=== PATIENT | female | born 1955 | race Caucasian/White ===

== ENCOUNTER 2017-01-21 07:52 | Outpatient (CLI) | payer OTHER ==
--- NOTE | 2017-01-22 16:25 | Mammography Report ---
DIGITAL SCREENING MAMMOGRAM: 01/21/2017 CLINICAL INDICATION: A 61-year-old nulliparous patient for screening. COMPARISON: 06/2015, 05/2014, 05/2013, 05/2012, 10/2010, 10/2009. TECHNIQUE: Routine CC and MLO projections were obtained of the breasts. FINDINGS: Scattered fibroglandular tissue is present within the breasts. There are no dominant panfilo s, suspicious microcalcifications, or secondary signs of malignancy. In comparison to the previous st udies, there are no significant changes. ASSESSMENT: NO MAMMOGRAPHIC EVIDENCE OF MALIGNANCY. NO SIGNIFICANT INTERVAL CHANGES. RECOMMENDATION: Screening mammography is recommended annually. BI-RADS category 1 - negative. STANDARD QUALIFYING STATEMENTS 1. This examination was reviewed with the aid of Computed-Aided Detection (CAD). 2. A negative or benign imaging report should not delay biopsy if clinically suspicious findings are present. Consider surgical consultation if warranted. More than 5% of cancers are not identified by i maging. 3. Dense breasts may obscure an underlying neoplasm. JOB #: [id number] EXT JOB #:[id number]
== END 2017-01-21 07:53 | disposition home or self-care (01) ==
LOC: DI 07:52
PROVIDERS: ATTEND Internal Medicine
DX: Z12.31 Encounter for screening mammogram for malignant neoplasm of breast (principal)
CPT/HCPCS: 77067

== ENCOUNTER 2017-03-18 20:49 | Observation (INO) | payer OTHER ==
[2017-03-18 21:07] LABS: BASOPHILS % (AUTO) 0.6 %; EOSINOPHILS % (AUTO) 4.4 %; HCT - HEMATOCRIT 40.1 % (37.0-47.0); HGB - HEMOGLOBIN 13.7 g/dL (12.0-16.0); LYMPHOCYTES % (AUTO) 48.9 %; MEAN CORPUSCULAR HEMOGLOBIN 33.7 pg (27.0-31.0); MEAN CORPUSCULAR HGB CONC 34.1 g/dL (32.0-36.0); MEAN CORPUSCULAR VOLUME 98.8 fL (81.0-99.0); MEAN PLATELET VOLUME 7.9 fL (7.9-10.8); MONOCYTES % (AUTO) 7.3 %; NEUTROPHILS % (AUTO) 38.8 %; RED BLOOD COUNT 4.06 10^6/uL (4.20-5.40)
[2017-03-18] MEDS ORDERED: ASPIRIN CHEW 81 MG TABLET PO STA (21:07)
[2017-03-18 21:08] LABS: BAND NEUTROPHILS % (MANUAL) 0 %
[2017-03-18] MEDS ORDERED: ASPIRIN CHEW 81 MG TABLET ONE (21:11)
[2017-03-18 21:20] LABS: ALBUMIN/GLOBULIN RATIO 1.2 (1.0-2.2); BILIRUBIN,TOTAL 0.4 mg/dL (0.2-1.0); CALCIUM 9.8 mg/dL (8.5-10.3); CREATININE 0.9 mg/dL (0.4-1.0); POTASSIUM 3.2 mmol/L (3.5-5.0); TOTAL PROTEIN 8.1 g/dL (6.7-8.2)
[2017-03-18 21:23] LABS: EOSINOPHILS % (MANUAL) 1 %; LYMPHOCYTES % (MANUAL) 51 %; NEUTROPHILS % (MANUAL) 45 %; TOTAL CELLS COUNTED 100
[2017-03-18 21:24] LABS: NP AUTO DIFFERENTIAL? YES; NP MAN DIFFERENTIAL? NO; PLATELET ESTIMATE, MANUAL NORMAL (130-450,000) (NORMAL); PLATELET MORPHOLOGY NORMAL APPEARANCE (NORMAL)
--- NOTE | 2017-03-18 21:30 | ED Physician Documentation ---
History of Present Illness - Stated complaint Stated Complaint: CHEST PX - Chief complaint Chief Complaint: Cardiac - Additonal information Additional information: hx from pt 61 f chest pain waxing and waning since about 5 AM became more constant and severe at 4 PM described as burning and aching to left chest rad to l neck some SOA / limited ability to no abd opain no fever cough no recent travel no hx CAD lung dz, DVT/PE + fhx CAD dad age 60 Review of Systems Constitutional: denies: Fever, Chills Cardiac: reports: Chest pain / pressure Respiratory: reports: Dyspnea. denies: Cough GI: denies: Abdominal Pain Musculoskeletal: denies: Extremity swelling Neurologic: denies: Generalized weakness, Focal weakness, Numbness Immunocompromised: denies: Immunocompromised PD PAST MEDICAL HISTORY - Past Medical History Past Medical History: Yes Psych: Post traumatic stress disorder - Past Surgical History Past Surgical History: Yes General: Appendectomy - Present Medications Home Medications: Ambulatory Orders Medication Instructions Recorded Confirmed No Known Home Medications [No 03/18/17 03/18/17 Known Home Medications] - Allergies Allergies/Adverse Reactions: Allergies Allergy/AdvReac Type Severity Reaction Status Date / Time Sulfa (Sulfonamide Allergy Rash Verified 03/18/17 21:26 Antibiotics) - Social History Does the pt smoke?: No Smoking Status: Never smoker Does the pt drink ETOH?: No Does the pt have substance abuse?: Yes - Immunizations Immunizations are current?: Yes - POLST Patient has POLST: No PD ED PE NORMAL - Vitals Vital signs reviewed: Yes - General General: Alert and oriented X 3 - HEENT HEENT: PERRL - Neck Neck: Supple, no meningeal sign - Cardiac Cardiac: RRR - Respiratory Respiratory: No respiratory distress, Clear bilaterally - Abdomen Abdomen: Soft, Non tender - Extremities Extremities: No deformity, Normal ROM s pain, No edema, No calf tenderness / cord - Neuro Neuro: Alert and oriented X 3 Results - Vitals Vitals: Vital Signs - 24 hr 03/18/17 03/18/17 03/18/17 20:53 21:39 23:41 Temperature 36.6 C Heart Rate 106 H 90 86 Respiratory 18 16 16 Rate Blood Pressure 170/76 H 115/69 105/64 O2 Saturation 100 99 97 Oxygen O2 Source Room air - EKG (time done) 2055 Rate: Rate (enter#) (86) Rhythm: NSR Intervals: Normal [place] QRS: Normal Ischemia: Non specific changes - Labs Labs: Laboratory Tests 03/18/17 03/18/17 03/18/17 20:59 20:59 20:59 WBC 11.0 H RBC 4.06 L Hgb 13.7 Hct 40.1 MCV 98.8 MCH 33.7 H MCHC 34.1 RDW 13.0 Plt Count 232 MPV 7.9 Neut # Not Reportable Lymph # Not Reportable [place] # Not Reportable Eos # Not Reportable Baso # Not Reportable Absolute Nucleated RBC Not Reportable Total Counted 100 Band Neuts % (Manual) 0 Nucleated RBC % Not Reportable Neutrophils # (Manual) 5.0 Lymphocytes # (Manual) 5.6 H Monocytes # (Manual) 0.3 Eosinophils # (Manual) 0.1 Differential Comment MANUAL DIFFERENTIAL Manual Slide Review Indicated Platelet Estimate NORMAL (130-450,000) Platelet Morphology NORMAL APPEARANCE RBC Morph Micro Appear NORMAL APPEARANCE D-Dimer Sodium 137 Potassium 3.2 L Chloride 98 L Carbon Dioxide 28 Anion Gap 11.0 BUN 17 Creatinine 0.9 Estimated GFR (MDRD) 64 L Glucose 94 Calcium 9.8 Total Bilirubin 0.4 AST 23 ALT 16 Alkaline Phosphatase 60 Total Creatine Kinase CK-MB (CK-2) Troponin I < 0.04 Total Protein 8.1 Albumin 4.4 Globulin 3.7 Albumin/Globulin Ratio 1.2 Lipase 38 03/19/17 03/19/17 03/19/17 00:02 00:02 00:02 WBC RBC Hgb Hct MCV MCH MCHC RDW Plt Count MPV Neut # Lymph # [place] # Eos # Baso # Absolute Nucleated RBC Total Counted Band Neuts % (Manual) Nucleated RBC % Neutrophils # (Manual) Lymphocytes # (Manual) Monocytes # (Manual) Eosinophils # (Manual) Differential Comment Manual Slide Review Platelet Estimate Platelet Morphology RBC Morph Micro Appear D-Dimer 224.9 Sodium Potassium Chloride Carbon Dioxide Anion Gap BUN Creatinine Estimated GFR (MDRD) Glucose Calcium Total Bilirubin AST ALT Alkaline Phosphatase Total Creatine Kinase 50 CK-MB (CK-2) 1.6 Troponin I < 0.04 Total Protein Albumin Globulin Albumin/Globulin Ratio Lipase - Rads (name of study) CXR Radiology: See rad report (scoliosis no acute) PD MEDICAL DECISION MAKING - ED course ED course: no CP in ED HEART score of 4 merits admit for serial CE echo hopefully EST given asa spoke with hospitalist who reviewed EKG and would like a 2nd trop in ER prior to admit to [facility] Departure - Departure Disposition: ED Place in Observation Clinical Impression: Chest pain Qualifiers: Chest pain type: unspecified Qualified Code(s): R07.9 - Chest pain, unspecified Condition: Good
--- NOTE | 2017-03-18 21:40 | XRAY Preliminary Report ---
Exam: XR CHEST 1 VIEW IMPRESSION: Mild S-shaped scoliosis, otherwise unremarkable single view chest. [facility] SITE ID: [id number]
--- NOTE | 2017-03-18 21:42 | XRAY Report ---
EXAM: CHEST RADIOGRAPHY EXAM DATE: 03/18/2017 09:33 PM. CLINICAL HISTORY: Chest pain. COMPARISON: None. TECHNIQUE: 1 view. FINDINGS: Lungs/Pleura: No focal opacities evident. No pleural effusion. No pneumothorax. Mediastinum: Within exam limitations, the cardiomediastinal contour is normal. Other: Mild S-shaped scoliosis noted. IMPRESSION: Mild S-shaped scoliosis, otherwise unremarkable single view chest. [facility] Referring Provider Line: [phone] SITE ID: [id number]
[2017-03-19] MEDS ORDERED: LORazepam 0.5 MG TABLET ONE (00:08)
[2017-03-19] MEDS ORDERED: LORazepam 0.5 MG TABLET PO STA (00:17)
[2017-03-19 00:26] LABS: CREATINE KINASE MB 1.6 ng/mL (0.6-6.3)
[2017-03-19] MEDS ORDERED: POTASSIUM CHLORIDE 20 MEQ TABLET PO STA (00:26)
[2017-03-19 00:28] LABS: TROPONIN I < 0.04 ng/mL (<0.49)
[2017-03-19] MEDS ORDERED: SODIUM CHLORIDE FLUSH 0.9% 10 ML SYRINGE IVP PRN (00:33)
[2017-03-19] MEDS ORDERED: ONDANSETRON 4 MG/2 ML VIAL IVP PRN (00:33)
[2017-03-19] MEDS ORDERED: TEMAZEPAM 15 MG CAPSULE PO PRN (00:33)
[2017-03-19] MEDS ORDERED: oxyCODONE 5 MG TABLET PO PRN (00:33)
[2017-03-19] MEDS ORDERED: hydrOXYzine PAMOATE 25 MG CAPSULE PO PRN (00:39)
--- NOTE | 2017-03-19 02:11 | HISTORY & PHYSICAL EXAMINATION ---
DATE OF ADMISSION: 03/19/2017 CHIEF COMPLAINT: Chest pain. HISTORY OF PRESENT ILLNESS: The patient a 61-year-old white female with no significant past medical history, taking no outpatient medications. The patient reported that multiple friends and family members during the past month or so and she had been under increased stress. She does not have cardiac history, is not diabetic and never experienced chest pain or decreased exercise tolerance in the past. She felt overwhelmed during the past week, however, and had some dizzy spells. She woke up around 5:30 a.m. on 03/18/2017 at which time she had left-sided chest discomfort. Initially it was not painful. However, during the day, the intensity of the discomfort increased and around 3 p.m. and it was definitely a pain. At that time, the patient noticed that the pain radiated to the left arm and also radiated up on her neck. She was worried and came to the ER for evaluation. Other than the chest discomfort she had no symptoms, denied nausea, vomiting, abdominal complaints, denied shortness of breath, or palpitations. At the ER, the patient was tearful and was given Ativan 2 times. The ER workup showed negative troponin; however, EKG appeared abnormal with multiple nonspecific changes including minimal ST depression in several leads. There was no previous EKG to compare. PAST MEDICAL HISTORY: Nonsignificant. OUTPATIENT MEDICATIONS: None taken. Diagnostic workup reviewed per ER record included a potassium of 3.2, abnormal EKG as mentioned above, unremarkable chest x-ray except for mild scoliosis. CODE STATUS: FULL CODE. REVIEW OF SYSTEMS: Please see pertinent positives listed above at history of present illness. There was no additional complaint on the 12-point review. FAMILY HISTORY: Positive for lung cancer in the father and heart disease leading to pacemaker implant in the father who at age 85. SOCIAL HISTORY: The patient smoked cigarettes up to age 27. She drinks alcohol occasionally. She uses marijuana regularly. PHYSICAL EXAMINATION: VITAL SIGNS: Temperature 36.6 Celsius, heart rate between 80 and 100, blood pressure 120/70 initially 170/70, respiratory rate 16, oxygen saturation 100% on room air. GENERAL: The patient is a well-developed, well-nourished female who was tearful and anxious, otherwise not in distress. PSYCH: Cooperative, but tearful. NEUROLOGICAL: Neurologically alert, oriented, nonfocal. CARDIOVASCULAR: S1, S2. No pathologic murmur. RESPIRATORY: Clear to auscultation without wheezes or crackles. LYMPH: No lymphedema. ABDOMEN: Soft, benign, nontender, normal bowel tones. SKIN: No rash. No jaundice. MUSCULOSKELETAL: Atraumatic. ASSESSMENT AND PLAN: The patient is a 61-year-old female with no significant past medical history who presented with 1 day history of intermittent chest discomfort. She did have negative troponin. Prior to bringing her up to medical floor I actually ordered a second troponin and D-dimer which also turned out to be negative. It was somewhat worrisome that her EKG showed some nonspecific changes. Additional issues on admission was hypokalemia and for that potassium replacement was already given. PLAN AND ORDERS: The patient is getting admitted under observation, will be monitored on telemetry and we will check a third troponin in the morning. Subsequently, I ordered stress test given the fact that the patient never had cardiac evaluation. Notably, the patient did have an abnormal EKG and no prior one was available to compare. It is possible that she does have coronary artery disease and she could develop anginal symptoms secondary to increased stress even without elevated troponin. Further plan will depend on the clinical course. DVT prophylaxis with foot pumps. If the patient remains hospitalized for longer than 24 hours, then pharmacologic DVT prophylaxis could be considered. Time spent to the care of this patient was 45 minutes. JOB #: [id number] EXT JOB #:[id number] SARAH
[2017-03-19] MEDS: SODIUM CHLORIDE FLUSH 0.9% 10 ML SYRINGE IVP SCH ×2 (05:13→14:17)
[2017-03-19 08:49] LABS: CHOL/HDL RATIO 3.1 (<4.4); CHOLESTEROL 200 mg/dL; HDL CHOLESTEROL 64 mg/dL; TRIGLYCERIDES 46 mg/dL; VLDL CHOLESTEROL 9 mg/dL
[2017-03-19] MEDS ORDERED: POLYETHYLENE GLYCOL 3350 17 GM PACKET PO SCH (09:00)
[2017-03-19] MEDS ORDERED: REGADENOSON 0.4 MG/5 ML SYRINGE IVP ONE (11:24)
--- NOTE | 2017-03-19 13:31 | CARDIAC PROCEDURE NOTE ---
DATE OF SERVICE: 03/19/2017 00:00:00 DESCRIPTION OF PROCEDURE: After signing informed consent, the patient underwent a treadmill stress te st with nuclear imaging. Resting heart rate 73. Peak heart rate 144 (90% predicted maximum heart rate for age). Resting blood pressure 118/62. Peak blood pressure 140/70. Resting EKG: Normal sinus rhythm and within normal limits. Peak EKG: Normal sinus rhythm, and inferio r and lateral ST segment depressions that are horizontal of 1 mm. The patient experienced no chest pain, neck pain or left arm pain during her exercise and had trivial shortness of breath. IMPRESSION: Abnormal EKG changes during treadmill stress test. Nuclear images reported separately. JOB #: [id number] EXT JOB #:[id number]
--- NOTE | 2017-03-19 14:48 | Nuclear Medicine Prelim Report ---
Exam: NM MYOCARDIAL PERFUSION STR/RST IMPRESSION: 1. No scintigraphic findings to indicate myocardial ischemia. Negative for infarct. 2. Normal left ventricular ejection fraction of 64%. 3. Normal segmental and global wall motion. 4. Normal left ventricular cavity size, no change with stress. [facility] SITE ID: [id number]
--- NOTE | 2017-03-19 14:51 | Nuclear Medicine Report ---
EXAM: SINGLE-ISOTOPE EXERCISE STRESS TEST. SINGLE-ISOTOPE AND ONE-DAY REST/STRESS MYOCARDIAL PERFUSION SCAN S WITH TOMOGRAPHIC IMAGING, QUANTITATIVE ANALYSIS, WALL MOTION ANALYSIS AND CALCULATION OF EJECTION F RACTION. EXAM DATE: 03/19/2017 02:25 PM. CLINICAL HISTORY: New onset of chest pain. COMPARISON: None. TECHNIQUE: A rest myocardial perfusion scan was done with tomography after the intravenous administration of 10. 7 mCi Tc-99m sestamibi. After an appropriate delay, a treadmill exercise stress was performed according to department saraho l. The patient exercised for 5 minutes and 0 seconds. The maximum heart rate was 175 bpm, which was 1 09% of the maximum predicted heart rate of 161 bpm. At approximately peak heart rate, 43.5 mCi of Tc- 99m sestamibi was injected for stress myocardial perfusion scan. Motion correction was applied when a ppropriate. Gated tomographic images were obtained for wall motion analysis and computation of left ventricular e jection fraction. FINDINGS: No convincing fixed or reversible perfusion defects are evident. Wall motion analysis demonstrates no focal wall motion abnormality The left ventricular end-diastolic volume is 69 cc. The left ventricular end-systolic volume is 25 cc . The left ventricular ejection fraction is calculated to be 64%. IMPRESSION: 1. No scintigraphic findings to indicate myocardial ischemia. Negative for infarct. 2. Normal left ventricular ejection fraction of 64%. 3. Normal segmental and global wall motion. 4. Normal left ventricular cavity size, no change with stress. [facility] Referring Provider Line: [phone] SITE ID: [id number]
[2017-03-19] MEDS ORDERED: DICLOFENAC SODIUM DR 75 MG TABLET PO PRN (15:53)
--- NOTE | 2017-03-19 15:53 | Discharge Plan ---
Discharge Plan Disposition: Home, Self Care Condition: Good Prescriptions: buPROPion [Wellbutrin Xl] 150 mg PO DAILY #30 tablet Diet: Regular Activity Restrictions: No Restrictions Shower Restrictions: No Driving Restrictions: No Weight Bearing: Full Weight Additional Instructions or Follow Up instructions: Please follow up with PCP for this hospital stay. Please try to keep therapy appointments if able. Take new prescribed Wellbutrin (bupropion). Start with 150mg by mouth daily, ok to increase to 300mg daily after one week. See psychiatrist for follow up. Do things that are enjoyable. No Smoking: If you smoke, Please STOP! Call for help. Follow-up with: KULDIP MARTE MD [Primary Care Provider] -
[2017-03-19] MEDS ORDERED: buPROPion XL 150 MG TABLET PO SCH (16:00)
[2017-03-19 16:09] VITALS: BP 124/78
--- NOTE | 2017-03-19 20:02 | DISCHARGE SUMMARY ---
Discharge Summary Admit Date: 03/19/17 Discharge Date: 03/19/17 Discharging Provider: EMMANUEL Tan Condition at Discharge: Good Discharge Disposition: 01 Home, Self Care - DIAGNOSES Admission Diagnoses: Chest pain Anxiety disorder Hypokalemia Discharge Diagnoses with Status of Each Condition: Chest pain Anxiety disorder Hypokalemia - ALLERGIES Allergies/Adverse Reactions: Allergies Allergy/AdvReac Type Severity Reaction Status Date / Time Sulfa (Sulfonamide Allergy Rash Verified 03/18/17 21:26 Antibiotics) - MEDICATIONS Home Medications: Ambulatory Orders Medication Instructions Recorded Confirmed Diclofenac Sodium Dr [Voltaren] 75 mg PO PRN PRN 03/19/17 03/19/17 Multivitamin [Theragran] 1 tab PO DAILY 03/19/17 03/19/17 buPROPion [Wellbutrin Xl] 150 mg PO DAILY #30 tablet 03/19/17 - LABS Result Diagrams: 03/18/17 20:59 03/18/17 20:59
[2017-03-20] MEDS ORDERED: MULTIVITAMIN TABLET PO SCH (09:00)
== END 2017-03-19 16:10 | disposition home or self-care (01) ==
LOC: ED 20:49 → OBS 03-19 00:33
PROVIDERS: ADMIT Internal Medicine; ATTEND Nurse Practitioner
DX: R07.9 Chest pain, unspecified (principal); F41.9 Anxiety disorder, unspecified; E87.6 Hypokalemia; Z87.891 Personal history of nicotine dependence
CPT/HCPCS: 36415; 71010; 78452; 80053; 80061; 82550; 82553; 83690; 84484; 85025; 85379; 93005; 93017; 99284; A9270; A9500; G0378

== ENCOUNTER 2018-01-28 11:25 | Outpatient (CLI) | payer OTHER | END 2018-01-28 11:26 | disposition critical access hospital (66) | LOC: EMS 11:25 | PROVIDERS: ATTEND Surgery | DX: R51 Headache (principal); R47.81 Slurred speech; R29.810 Facial weakness | CPT/HCPCS: A0425; A0429 ==

== ENCOUNTER 2018-01-28 11:35 | Emergency (ER) | payer OTHER ==
--- NOTE | 2018-01-28 11:47 | ED Physician Documentation ---
History of Present Illness - Stated complaint Stated Complaint: SPEECH DEFICIT - Chief complaint Chief Complaint: Neuro - Additonal information Additional information: hx from pt and EMS 62 female unknown last normal missed an appt yesterday police out for welfare check today and found pt with R sided weakness and aphasia pt cannt say when last normal was pt denies any fall she denies [employer] CP AP no fever cough NVD no prior CVA no blood thinners [facility] pt Review of Systems Constitutional: denies: Fever Throat: denies: Sore throat Cardiac: denies: Chest pain / pressure Respiratory: denies: Dyspnea GI: denies: Abdominal Pain, Nausea, Vomiting : denies: Dysuria Neurologic: reports: Focal weakness, Difficulty speaking. denies: Numbness, Headache, Head injury Endocrine: denies: Easy bruising / bleeding Immunocompromised: denies: Immunocompromised PD PAST MEDICAL HISTORY - Past Medical History Cardiovascular: Hypertension Respiratory: None Endocrine/Autoimmune: None : Frequency HEENT: None Psych: Post traumatic stress disorder Musculoskeletal: Rheumatoid arthritis Derm: Eczema - Past Surgical History Past Surgical History: Yes General: Appendectomy - Present Medications Home Medications: Ambulatory Orders Medication Instructions Recorded Confirmed Multivitamin [Theragran] 1 tab PO DAILY 03/19/17 03/19/17 buPROPion [Wellbutrin Xl] 150 mg PO DAILY #30 tablet 03/19/17 Cetirizine [ZyrTEC] 10 mg pe 01/28/18 - Allergies Allergies/Adverse Reactions: Allergies Allergy/AdvReac Type Severity Reaction Status Date / Time Sulfa (Sulfonamide Allergy Rash Verified 01/28/18 11:43 Antibiotics) - Social History Does the pt smoke?: No Smoking Status: Former smoker Does the pt drink ETOH?: No Does the pt have substance abuse?: Yes - Immunizations Immunizations are current?: Yes - POLST Patient has POLST: No PD ED PE NORMAL - Vitals Vital signs reviewed: Yes - General General: Alert and oriented X 3 - HEENT HEENT: Atraumatic, PERRL, EOMI - Neck Neck: Supple, no meningeal sign - Cardiac Cardiac: RRR - Respiratory Respiratory: No respiratory distress, Clear bilaterally - Abdomen Abdomen: Soft, Non tender - Derm Derm: Normal color - Neuro Neuro: Alert and oriented X 3, No motor deficit (R sided weakness), No sensory deficit, Normal speech (expressive and receptive apahasia). No: skewer up 2-12 intact (R facial droop) Results - Vitals Vitals: Vital Signs - 24 hr 01/28/18 01/28/18 01/28/18 11:38 13:59 15:50 Temperature 37.1 C 37.1 C Heart Rate 84 76 75 Respiratory 20 17 30 H Rate Blood Pressure 135/74 H 118/79 118/68 O2 Saturation 100 100 94 01/28/18 01/28/18 16:45 18:27 Temperature 37.1 C Heart Rate 78 67 Respiratory 22 16 Rate Blood Pressure 127/63 121/78 O2 Saturation 100 100 Oxygen O2 Source Room air - EKG (time done) 1158 Rate: Rate (enter#) (55) Rhythm: NSR [place]: Normal Intervals: Normal [place] QRS: Normal Ischemia: Normal ST segments - Labs Labs: Laboratory Tests 01/28/18 01/28/18 01/28/18 11:53 11:53 11:53 WBC 10.4 RBC 4.27 Hgb 14.5 Hct 42.2 MCV 99.0 MCH 33.9 H MCHC 34.3 RDW 12.8 Plt Count 229 MPV 8.3 Neut # (Auto) 6.9 H Lymph # (Auto) 2.6 Davison # (Auto) 0.7 Eos # (Auto) 0.0 Baso # (Auto) 0.0 Absolute Nucleated RBC 0.00 Nucleated RBC % 0.0 PT 12.2 INR 1.1 Sodium 139 Potassium 3.2 L Chloride 104 Carbon Dioxide 23 Anion Gap 12.0 BUN 15 Creatinine 0.8 Estimated GFR (MDRD) 73 L Glucose 102 H Calcium 9.6 Total Bilirubin 1.4 H AST 24 ALT 17 Alkaline Phosphatase 55 Troponin I Total Protein 8.3 H Albumin 4.7 Globulin 3.6 Albumin/Globulin Ratio 1.3 Lipase 34 Urine Color Urine Clarity Urine pH Ur Specific [place] Urine Protein Urine Glucose (UA) Urine Ketones Urine Occult Blood Urine Nitrite Urine Bilirubin Urine Urobilinogen Ur Leukocyte Esterase Urine RBC Urine WBC Ur Squamous Epith Cells Urine Bacteria Urine Mucus Ur Microscopic Review Urine Culture Comments 01/28/18 01/28/18 11:53 12:15 WBC RBC Hgb Hct MCV MCH MCHC RDW Plt Count MPV Neut # (Auto) Lymph # (Auto) Davison # (Auto) Eos # (Auto) Baso # (Auto) Absolute Nucleated RBC Nucleated RBC % PT INR Sodium Potassium Chloride Carbon Dioxide Anion Gap BUN Creatinine Estimated GFR (MDRD) Glucose Calcium Total Bilirubin AST ALT Alkaline Phosphatase Troponin I < 0.04 Total Protein Albumin Globulin Albumin/Globulin Ratio Lipase Urine Color YELLOW Urine Clarity CLEAR Urine pH 6.0 Ur Specific [place] >=1.030 H Urine Protein NEGATIVE Urine Glucose (UA) NEGATIVE Urine Ketones >=80 H Urine Occult Blood MODERATE H Urine Nitrite NEGATIVE Urine Bilirubin NEGATIVE Urine Urobilinogen 1 (NORMAL) Ur Leukocyte Esterase NEGATIVE Urine RBC 0-5 Urine WBC 0-3 Ur Squamous Epith Cells MOD Squamous H Urine Bacteria Rare Urine Mucus Moderate Strands Ur Microscopic Review INDICATED Urine Culture Comments NOT INDICATED - Rads (name of study) CTH Radiology: See rad report (see rad report - subacute L MCA territory infarct with 2 mm shift) CTA head Radiology: See rad report (L MCA occulusion likely embolic thrombus) PD MEDICAL DECISION MAKING - ED course ED course: severe stroke sx but last known normal unknown and so not a TPA candidate per CT and CTA pt has a subacute L MCA embolic occlusion with stroke and resultant edema and small shift called stroke center [facility] and d/w Dr Edgar - pt is not a candidate for TPA or clot retrieval etc - but given age edema and shift might be a candidate for de compressive crani - he accepts pt in transfer - he rec asa [place] pt appears dehydrated and do not think safe to take PO - and so started IVF bolus and maintenance D5 1/2 NS finally received bed confirmation from [facility] at 1800 pt has been slowly worsening this afternoon - worsening aphasia and now urinary incont per EMS minimum another hr before ground transport will be available, maybe longer will transfer by air - Sepsis Event Vital Signs: Vital Signs - 24 hr 01/28/18 01/28/18 01/28/18 11:38 13:59 15:50 Temperature 37.1 C 37.1 C Heart Rate 84 76 75 Respiratory 20 17 30 H Rate Blood Pressure 135/74 H 118/79 118/68 O2 Saturation 100 100 94 01/28/18 01/28/18 16:45 18:27 Temperature 37.1 C Heart Rate 78 67 Respiratory 22 16 Rate Blood Pressure 127/63 121/78 O2 Saturation 100 100 Oxygen O2 Source Room air Departure - Departure Disposition: 02 Transfer Acute Care Hosp Clinical Impression: Cerebrovascular accident (CVA) Qualifiers: CVA mechanism: embolism Precerebral and cerebral artery: middle cerebral artery Laterality of affected vessel: left Qualified Code(s): I63.412 - Cerebral infarction due to embolism of left middle cerebral artery Condition: Poor NIHSS - Time Time: 11:40 - Level of Consciousness Level of consciousness: (0) Alert, Keenly responsive LOC Questions: (0) Answers both Q's correct LOC Commands: (1) Performs one correctly (touches her ear when asked to touch her nose) - Gaze Best Gaze: (0) Normal - Visual Visual: (0) No loss - Facial Palsy Facial Palsy: (2) Partial paralysis - Motor Arms (both separate) Motor Arm (right): (3) No effort against gravity Motor Arm (left): (0) No drift - Motor Legs (both separate) Motor Leg (right): (3) No effort against gravity Motor Leg (left): (0) No drift - Limb Ataxia Limb Ataxia: (2) Present in 2 limbs - Sensory Sensory: (0) Normal - Best Language Best Language: (2) Severe aphasia - Dysarthria Dysarthria: (0) Normal - Extinction and Inattention (formally neg Extinction and inattention: (0) No abnormality - Total Score/Results Total Score/Result: 13
[2018-01-28 11:57] LABS: BASOPHILS % (AUTO) 0.5 %; EOSINOPHILS % (AUTO) 0.5 %; HGB - HEMOGLOBIN 14.5 g/dL (12.0-16.0); LYMPHOCYTES # (AUTO) 2.6 10^3/uL (1.5-3.5); LYMPHOCYTES % (AUTO) 25.5 %; MEAN CORPUSCULAR HEMOGLOBIN 33.9 pg (27.0-31.0); MEAN CORPUSCULAR HGB CONC 34.3 g/dL (32.0-36.0); MEAN PLATELET VOLUME 8.3 fL (7.9-10.8); MONOCYTES # (AUTO) 0.7 10^3/uL (0.0-1.0); MONOCYTES % (AUTO) 6.6 %; NEUTROPHILS # (AUTO) 6.9 10^3/uL (1.5-6.6); NEUTROPHILS % (AUTO) 66.9 %; PLT - PLATELET COUNT 229 10^3/uL (130-450); RED BLOOD COUNT 4.27 10^6/uL (4.20-5.40); RED CELL DISTRIBUTION WIDTH 12.8 % (12.0-15.0); WHITE BLOOD COUNT 10.4 x10^3/uL (4.8-10.8)
[2018-01-28 12:02] LABS: INR 1.1 (0.8-1.2); PT - PROTHROMBIN TIME 12.2 secs (9.9-12.6)
[2018-01-28 12:09] LABS: ALBUMIN 4.7 g/dL (3.2-5.5); ALBUMIN/GLOBULIN RATIO 1.3 (1.0-2.2); BILIRUBIN,TOTAL 1.4 mg/dL (0.2-1.0); CALCIUM 9.6 mg/dL (8.5-10.3); CREATININE 0.8 mg/dL (0.4-1.0); TOTAL PROTEIN 8.3 g/dL (6.7-8.2)
[2018-01-28 12:35] LABS: GLUCOSE, URINE (UA) NEGATIVE (NEGATIVE); KETONES,URINE (UA) >=80 mg/dL (NEGATIVE); LEUKOCYTE ESTERASE, URINE NEGATIVE (NEGATIVE); NITRITE,URINE NEGATIVE (NEGATIVE); OCCULT BLOOD,URINE MODERATE (NEGATIVE); PROTEIN,URINE NEGATIVE (NEGATIVE); UROBILINOGEN,URINE 1 (NORMAL) E.U./dL (NORMAL)
[2018-01-28] MEDS ORDERED: IOPAMIDOL-300 100 ML VIAL ONE (12:48)
[2018-01-28 12:57] LABS: BILIRUBIN,URINE NEGATIVE (NEGATIVE); CLARITY,URINE CLEAR (CLEAR); ICTOTEST,URINE NEGATIVE
[2018-01-28 13:15] LABS: BACTERIA,URINE Rare /HPF (None Seen); MUCUS,URINE Moderate Strands; RBC,URINE 0-5 /HPF (0-5); SQUAMOUS EPITHELIAL CELL,UR MOD Squamous (<= Few)
[2018-01-28] MEDS ORDERED: IOPAMIDOL-300 100 ML VIAL IVP ONE (13:42)
--- NOTE | 2018-01-28 13:42 | CT Report ---
Reason: R side weakness tevin/rec aphasia out of TPA window Procedure Date: 01/28/2018 Accession Number: [id number] / [id number] Procedure: CT - Head W/O CPT Code: FULL RESULT: EXAM: CT HEAD EXAM DATE: 01/28/2018 01:18 PM. CLINICAL HISTORY: R side weakness tevin/rec aphasia out of TPA window. COMPARISON: None. TECHNIQUE: Multiaxial CT images were obtained from the foramen magnum to the vertex. Reformats: Coronal. IV contrast: None. In accordance with CT protocol optimization, one or more of the following dose reduction techniques were utilized for this exam: automated exposure control, adjustment of mA and/or KV based on patient size, or use of iterative reconstructive technique. FINDINGS: Parenchyma: There is an approximately 5.4 x 4.9 x 5.4 cm area of marked cortical and subcortical hypodensity suggesting subacute infarction involving the left posterior inferior frontal lobe, insula, caudate nucleus, striate nuclei, internal capsule, and anterior superior left temporal lobe. There is minimal mass-effect with 2 mm left to right subfalcine shift and mild effacement of adjacent sulci. No other low density lesions. No high density lesions. German-white differentiation otherwise is intact. Extraaxial Spaces: Normal for age. No subdural or epidural collections identified. Ventricles: Mild effacement of the left lateral ventricle frontal horn and body. No hydrocephalus. Sinuses and Orbits: Imaged paranasal sinuses, orbits, and mastoids show no significant abnormality. Bones: No evidence of fracture or calvarial defect. Plates and screws at the anterior medial and anterolateral maxillary bones bilaterally. Other: None. IMPRESSION: 1. 5 cm likely subacute infarction in the left MCA distribution involving the left posterior inferior frontal lobe, insula, basal ganglia, internal capsule, and anterior superior temporal lobe. 2. Minimal mass-effect on adjacent sulci and left lateral ventricle with minimal 2 mm left to right midline shift. 3. No intracranial hemorrhage. RADIA
--- NOTE | 2018-01-28 14:02 | CT Report ---
Reason: R sided weakness rec/exp apaia Procedure Date: 01/28/2018 Accession Number: [id number] / [id number] Procedure: CT - Head Angio CPT Code: FULL RESULT: CT ANGIOGRAM HEAD AND POSTCONTRAST HEAD CT Indication: 62-year-old female with right-sided weakness and receptive/expressive aphasia. Has evidence of recent infarction in left MCA territory on unenhanced head CT. TECHNIQUE: CT angiogram head 80 cc of Isovue-300 contrast were injected at a rapid rate through a large bore, left antecubital intravenous catheter. The head was scanned helically during arterial phase. Data was reconstructed into 0.5 mm axial images. In addition, MIP reconstructions have been generated in multiple projections to allow better assessment of the intracranial arteries. In accordance with CT protocol optimization, one or more of the following dose reduction techniques were utilized for this exam: automated exposure control, adjustment of mA and/or KV based on patient size, or use of iterative reconstructive technique. COMPARISON: Unenhanced head CT 01/28/2018 FINDINGS: CT angiogram head Anterior circulation: There is calcified atherosclerotic plaque in the cavernous segment of the left internal carotid artery without significant associated stenosis. The intracranial internal carotid arteries are otherwise unremarkable. No aneurysm is identified. The A1 segment of the left anterior cerebral artery is mildly hypoplastic with larger right A1 segment. An anterior communicating artery is demonstrated. There appears to be good filling of A2 and distal ISABELLA branches bilaterally. No obvious ISABELLA branch occlusion is demonstrated. There is occlusion of the left MCA in the proximal M1 segment. The occlusion is almost certainly from an intraluminal thrombus. There is filling of some M3 and M4 branches, probably retrograde and through leptomeningeal collaterals. The right middle cerebral artery is unremarkable. No aneurysm is demonstrated and there is no evidence of occlusion or hemodynamically significant stenosis affecting the main branches of the right MCA. Posterior circulation: The vertebral arteries and left PICA are widely patent. No right PICA is identified. The right PICA territory is probably supplied by the contralateral PICA or ipsilateral AICA (normal anatomical variant). There may be a focal fenestration of the proximal basilar artery. This represents a known anatomical variant. The basilar artery is otherwise unremarkable. There is good filling of the superior cerebellar arteries and posterior cerebral arteries without apparent stenosis. Patent posterior communicating arteries are demonstrated bilaterally. No aneurysms are identified arising from the basilar artery trunk or apex. Postcontrast head CT No enhancing space-occupying mass lesion is demonstrated. There appears to be normal intravascular contrast enhancement in the dural venous sinuses and deep venous structures. Changes of recent left MCA infarction are again demonstrated, as seen on recent unenhanced head CT. IMPRESSION: CT angiogram head 1. Abrupt occlusion, left MCA and proximal M1 segment. The occlusion is almost certainly from intraluminal thrombus. There is filling of some M3 and M4 branches, probably retrograde and through leptomeningeal collaterals. 2. Otherwise unremarkable intracranial CT angiogram. Postcontrast head CT No enhancing space-occupying mass lesion is demonstrated. Critical result: The findings of the proximal left MCA occlusion were immediately called to Dr. Rutledge , following preliminary assessment on September 24 at roughly 1355 hrs.
[2018-01-28] MEDS ORDERED: SODIUM CHLORIDE 0.9% 1,000 ML IV ONE (14:13)
[2018-01-28] MEDS ORDERED: DEXTROSE 5%-0.45% NACL 1,000 ML IV ONE (14:14)
[2018-01-28] MEDS ORDERED: ASPIRIN 300 MG SUPP PR STA (14:19)
--- NOTE | 2018-01-28 14:26 | CT Report ---
Reason: R weakness rec/exp aphasia out of TPA window Procedure Date: 01/28/2018 Accession Number: [id number] / [id number] Procedure: CT - Neck Angio CPT Code: FULL RESULT: CT ANGIOGRAM NECK EXAM DATE: 01/28/2018. INDICATION: 62-year-old female. Right-sided weakness with receptive/expressive aphasia. Out of TPA window. TECHNIQUE: 100 cc of Isovue-300 contrast were injected at a rapid rate through a large bore, left antecubital intravenous catheter. The neck was scanned helically during arterial phase. Data was reconstructed into 0.5 mm axial images. In addition, MIP reconstructions have been generated in multiple projections to allow better assessment of the extracranial carotid and vertebral arteries. Significant arterial stenoses will be assessed using NASCET type measurements. In accordance with CT protocol optimization, one or more of the following dose reduction techniques were utilized for this exam: automated exposure control, adjustment of mA and/or KV based on patient size, or use of iterative reconstructive technique. COMPARISON: None. FINDINGS: Of note, the patient also had a CTA examination of the head performed at same visit but this has been dictated separately. The left common carotid artery arises from the left lateral wall of the proximal innominate artery. This represents a known anatomical variant. Branching of the aortic arch is otherwise normal. Right carotid artery: There is minimal calcified plaque along the posterior wall at the carotid bifurcation. No associated stenosis. Left carotid artery: There is partially calcified plaque at the carotid bifurcation, extending along the posterior wall of the proximal bulb. There is associated narrowing in the proximal bulb. At the level of maximal narrowing the lumen is reduced to about 2 mm AP. More distally the ICA measures about 3.5 mm diameter. This represents a 40% NASCET type stenosis. Right vertebral artery: Widely patent at origin. There is mild narrowing in the V2 segment at the C5-C6 and C4-C5 disk levels, due to mass effect by large right-sided uncovertebral osteophytes. The V2 segment is otherwise unremarkable. The V3 segment appears widely patent. Left vertebral artery: There appears to be mild narrowing at the origin. The V1 segment is otherwise unremarkable. The V2 and V3 segments are widely patent throughout. IMPRESSION: 1. Atherosclerotic disease at the left carotid bifurcation gives rise to about 40% NASCET type stenosis in the proximal left carotid bulb. 2. There is minor atherosclerotic disease at the right carotid bifurcation without associated carotid artery stenosis. 3. No significant pathology is identified in the extracranial vertebral arteries. In particular, there is no evidence of dissection or hemodynamically significant stenosis.
[2018-01-28 18:27] VITALS: BP 121/78
== END 2018-01-28 19:22 | disposition short-term general hospital (02) ==
LOC: EDUNIT# → ED 11:35
DX: I63.412 Cerebral infarction due to embolism of left middle cerebral artery (principal); I10 Essential (primary) hypertension; Z87.891 Personal history of nicotine dependence
CPT/HCPCS: 36415; 70450; 70496; 70498; 80053; 81001; 83690; 84484; 85025; 85610; 93005; 96360; 99284; 99285; A9270; Q9967; 81003; 87086

== ENCOUNTER 2018-06-27 11:51 | Emergency (ER) | payer OTHER ==
[2018-06-27 12:09] VITALS: BP 113/71
--- NOTE | 2018-06-27 13:03 | ED Physician Documentation ---
PD HPI UPPER EXT INJURY - Stated complaint Stated Complaint: R HAND INJ - Chief complaint Chief Complaint: Ext Problem - History obtained from History obtained from: Patient - History of Present Illness Location: Right, Hand Type of injury: Fall (She fell 4 weeks ago. She has a history of stroke with right-sided deficits and speech deficits, she still feels pain and has persi stent bruising over the right hand.) Review of Systems Constitutional: reports: Reviewed and negative Throat: reports: Reviewed and negative Cardiac: reports: Reviewed and negative Respiratory: reports: Reviewed and negative PD PAST MEDICAL HISTORY - Past Medical History Cardiovascular: Hypertension Respiratory: None Endocrine/Autoimmune: None : Frequency HEENT: None Psych: Post traumatic stress disorder Musculoskeletal: Rheumatoid arthritis Derm: Eczema - Past Surgical History Past Surgical History: Yes General: Appendectomy - Present Medications Home Medications: Ambulatory Orders Medication Instructions Recorded Confirmed RX: Multivitamin [Theragran] 1 tab PO DAILY 03/19/17 03/19/17 RX: buPROPion [Wellbutrin Xl] 150 mg PO DAILY #30 tablet 03/19/17 RX: Cetirizine [ZyrTEC] 10 mg pe 01/28/18 - Allergies Allergies/Adverse Reactions: Allergies Allergy/AdvReac Type Severity Reaction Status Date / Time Sulfa (Sulfonamide Allergy Rash Verified 01/28/18 11:43 Antibiotics) - Social History Does the pt smoke?: No Smoking Status: Former smoker Does the pt drink ETOH?: No Does the pt have substance abuse?: Yes - Immunizations Immunizations are current?: Yes - POLST Patient has POLST: No PD ED PE NORMAL - Vitals Vital signs reviewed: Yes - General General: Alert and oriented X 3 (Slow stuttering speech with mild word finding difficulties) - Extremities Extremities: Other (She is tender over the first metacarpal and second metacarpal with some persistent bruising there. Hands are held in slight flexion which could be from the stroke and she has minimal use of the right hand.) - Neuro Neuro: Alert and oriented X 3, Other (She has right-sided weakness from prior stroke) Results - Vitals Vitals: Vital Signs - 24 hr 06/27/18 12:00 Temperature 37.5 C Heart Rate 88 Respiratory 18 Rate Blood Pressure 113/71 O2 Saturation 100 Oxygen O2 Source Room air - Rads (name of study) R hand 3v Radiology: EMP read contemporaneously (Subacute distal fifth metacarpal fracture and severe osteopenia) PD MEDICAL DECISION MAKING - ED course ED course: This 62-year-old woman who presents 4 weeks after a fall injuring the right hand and is found to have a distal fifth metacarpal fracture. Case was discussed by phone with Dr. Cody, the on-call orthopedic clinical services consultant who viewed the x-rays and at this point recommended no specific intervention although she could be splinted for comfort if she wanted. Pros and cons of this were discussed with the patient and she declined. Departure - Departure Disposition: 01 Home, Self Care Clinical Impression: Fracture of fifth metacarpal bone Condition: Good Record reviewed to determine appropriate education?: Yes Follow-Up: [facility] [Provider Group] - Within 1 week Comments: As discussed, given that the fracture is 4 weeks old it is mostly healed at this point. You should still follow-up with the orthopedic surgeon for a second opinion. Discharge Date/Time: 06/27/18 13:55
--- NOTE | 2018-06-27 13:52 | XRAY Report ---
Reason: hand inj Procedure Date: 06/27/2018 Accession Number: [id number] / [id number] Procedure: XR - Hand 3 View RT CPT Code: FULL RESULT: EXAM: RIGHT HAND RADIOGRAPHY EXAM DATE: 06/27/2018 01:26 PM. CLINICAL HISTORY: Right hand pain. COMPARISON: None. TECHNIQUE: 3 views. FINDINGS: Bones: Bones are severely osteopenic. Minimally displaced and mildly angulated fracture deformity of the distal fifth metacarpal bone is seen. Some minor callus formation is seen suggesting subacute injury. The remainder osseous structures appear grossly intact. Joints: Mild degenerative changes are seen in the DIP joints and first carpometacarpal joint. Alignment is preserved. Soft Tissues: Normal. No soft tissue swelling. IMPRESSION: Subacute appearing distal fifth metacarpal fracture and severe osteopenia. RADIA
== END 2018-06-27 13:55 | disposition home or self-care (01) ==
LOC: ED 11:51
DX: S62.306A Unspecified fracture of fifth metacarpal bone, right hand, initial encounter for closed fracture (principal); S60.011A Contusion of right thumb without damage to nail, initial encounter; S60.021A Contusion of right index finger without damage to nail, initial encounter; W18.30XA Fall on same level, unspecified, initial encounter; M85.841 Other specified disorders of bone density and structure, right hand; I10 Essential (primary) hypertension; I69.328 Other speech and language deficits following cerebral infarction; Z87.891 Personal history of nicotine dependence
CPT/HCPCS: 99282

== ENCOUNTER 2018-08-22 10:56 | Outpatient (CLI) | payer OTHER | END 2018-08-22 10:57 | disposition home or self-care (01) | LOC: SC 10:56 | PROVIDERS: ATTEND Internal Medicine Pulmonary Disease | DX: G47.10 Hypersomnia, unspecified (principal); G47.8 Other sleep disorders; R41.89 Other symptoms and signs involving cognitive functions and awareness | CPT/HCPCS: 99203; 99212 ==

== ENCOUNTER 2018-09-01 19:33 | Outpatient (CLI) | payer OTHER | END 2018-09-01 19:34 | disposition home or self-care (01) | LOC: SC 19:33 | PROVIDERS: ATTEND Internal Medicine Pulmonary Disease | DX: G47.61 Periodic limb movement disorder (principal) | CPT/HCPCS: 95810 ==

== ENCOUNTER 2018-09-15 11:09 | Outpatient (CLI) | payer OTHER | END 2018-09-15 11:10 | disposition home or self-care (01) | LOC: SC 11:09 | PROVIDERS: ATTEND Nurse Practitioner Family | DX: R06.83 Snoring (principal); G47.61 Periodic limb movement disorder; G47.10 Hypersomnia, unspecified | CPT/HCPCS: 99212; 99214 ==

== ENCOUNTER 2019-02-22 10:46 | Emergency (ER) | payer OTHER ==
--- NOTE | 2019-02-22 13:27 | ED Physician Documentation ---
History of Present Illness - Stated complaint Stated Complaint: R HIP PX - Chief complaint Chief Complaint: General - History obtained from History obtained from: Patient - History of Present Illness Timing: Chronic (63-year-old woman on clopidogrel for prior stroke. About 3 months ago she was in [place] and fell and broke her hip. She had a hip replacement. She continues to have hip pain there that got worse when the weather changed a few weeks ago. She wonders if she should still be on the blood thinner. She does not know of any other vascular disease. She is able to walk and bear weight but uses a cane.) Review of Systems Constitutional: denies: Fever, Chills Cardiac: denies: Chest pain / pressure, Palpitations Respiratory: denies: Dyspnea, Cough PD PAST MEDICAL HISTORY - Past Medical History Cardiovascular: Hypertension Respiratory: None Endocrine/Autoimmune: None : Frequency HEENT: None Psych: Post traumatic stress disorder Musculoskeletal: Rheumatoid arthritis Derm: Eczema - Past Surgical History Past Surgical History: Yes General: Appendectomy - Present Medications Home Medications: Ambulatory Orders Medication Instructions Recorded Confirmed Multivitamin [Theragran] 1 tab PO DAILY 03/19/17 03/19/17 buPROPion [Wellbutrin Xl] 150 mg PO DAILY #30 tablet 03/19/17 Cetirizine [ZyrTEC] 10 mg pe 01/28/18 - Allergies Allergies/Adverse Reactions: Allergies Allergy/AdvReac Type Severity Reaction Status Date / Time Sulfa (Sulfonamide Allergy Rash Verified 02/22/19 10:55 Antibiotics) - Social History Does the pt smoke?: No Smoking Status: Former smoker Does the pt drink ETOH?: No Does the pt have substance abuse?: Yes - Immunizations Immunizations are current?: Yes - POLST Patient has POLST: No PD ED PE NORMAL - Vitals Vital signs reviewed: Yes - General General: Alert and oriented X 3, No acute distress - Extremities Extremities: Other (Contractured right upper extremity from prior stroke. The left hip is nontender, no significant pain with internal or external rotation. 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 I defer those to her primary care physician who should have the discharge summaries, I am not sure how long she Was supposed to be on clopidogrel after her stroke. Secondly she has pain after her hip replacement is found to have myositis ossificans, she declined pain medication and I referred her to orthopedics. Departure - Departure Disposition: 01 Home, Self Care Clinical Impression: Myositis ossificans Condition: Good Record reviewed to determine appropriate education?: Yes Follow-Up: Majo Rea MD [Primary Care Provider] - [facility] [Provider Group] Comments: As discussed, I recommend talking with your primary care physician about the question about your blood thinner. I do not have the discharge summaries from [facility] or the [employer] [facility] to know how long you were supposed to be on the blood thinner.
--- NOTE | 2019-02-22 14:26 | XRAY Report ---
Reason: post op pain Procedure Date: 02/22/2019 Accession Number: [id number] / [id number] Procedure: XR - Hip w/Pelvis 2-3V RT CPT Code: FULL RESULT: EXAM: RIGHT HIP RADIOGRAPHY EXAM DATE: 02/22/2019 01:49 PM. CLINICAL HISTORY: Post op pain. COMPARISON: None. TECHNIQUE: 2 views. FINDINGS: Bones and Joints: No fractures or bone lesion. A right hip arthroplasty has been performed. This implant has (enter fixation type of acetabular cup and stem). No unexpected periprosthetic lucency or other evidence of loosening. The contralateral hip and other joint spaces are unremarkable. Soft Tissues: Soft tissue calcifications adjacent to the neck. No soft tissue swelling. IMPRESSION: Expected appearance of hip arthroplasty. Myositis ossificans Soft tissue calcifications adjacent to the neck, RADIA
[2019-02-22 14:44] VITALS: BP 142/79
== END 2019-02-22 14:44 | disposition home or self-care (01) ==
LOC: ED 10:46
DX: M61.58 Other ossification of muscle, other site (principal); Z96.641 Presence of right artificial hip joint; I10 Essential (primary) hypertension; I69.328 Other speech and language deficits following cerebral infarction; I69.398 Other sequelae of cerebral infarction; M62.421 Contracture of muscle, right upper arm; Z79.02 Long term (current) use of antithrombotics/antiplatelets; Z87.891 Personal history of nicotine dependence
CPT/HCPCS: 99282; 99283

== ENCOUNTER 2019-05-12 10:13 | Outpatient (CLI) | payer OTHER ==
--- NOTE | 2019-05-12 11:26 | Mammography Report ---
Reason: ROUTINE SCREENING Procedure Date: 05/12/2019 Accession Number: [id number] / [id number] Procedure: MARY - Screening Mammo Dig Bilat CPT Code: Final Report FULL RESULT: EXAM: Screening Mammo Dig Bilat DATE: 05/12/2019 10:35 AM CLINICAL HISTORY: Screening encounter. TECHNIQUE: (B) - Bilateral CC and MLO views were obtained. Right-sided positioning is limited by the patient's inability to fully cooperate due to interval cerebrovascular accident, best possible images are obtained. COMPARISON: 01/21/2017 through 10/21/2009. PARENCHYMAL PATTERN: (D) - The breast(s) demonstrate(s) heterogeneously dense fibroglandular parenchyma. FINDINGS: There are no suspicious masses, calcifications, or areas of distortion. IMPRESSION: Negative examination. BI-RADS category 1. RECOMMENDATION: (ANNUAL) - Recommend routine annual screening mammography. BI-RADS CATEGORY: (1) - Negative. STANDARD QUALIFYING STATEMENTS: 1. This examination was not reviewed with the aid of Computer-Aided Detection (CAD). 2. A negative or benign imaging report should not preclude biopsy if clinically suspicious findings are present. 3. Dense breasts may obscure an underlying neoplasm. 4. This examination was reviewed without the aid of 3D breast imaging (tomosynthesis).
== END 2019-05-12 10:14 | disposition home or self-care (01) ==
LOC: DI 10:13
PROVIDERS: ATTEND Internal Medicine
DX: Z12.31 Encounter for screening mammogram for malignant neoplasm of breast (principal)
CPT/HCPCS: 77067

== ENCOUNTER 2019-10-11 07:17 | Outpatient (CLI) | payer OTHER ==
--- NOTE | 2019-10-11 09:19 | Ultrasound Report ---
Reason: ELEVATED LFT'S Procedure Date: 10/11/2019 Accession Number: [id number] / [id number] Procedure: US - Abdomen Limited CPT Code: Final Report FULL RESULT: PROCEDURE: Abdomen Limited INDICATIONS: ELEVATED LFT'S TECHNIQUE: Real-time scanning was performed of the abdominal and retroperitoneal organs, with image documentation. Color and pulse Doppler interrogation was also performed of the hepatic and splenic vessels, or of the lesion of interest. COMPARISON: None. FINDINGS: Liver: Liver is normal in size and demonstrates diffusely increased echotexture without focal intrahepatic abnormalities. Gallbladder: Gallbladder is normal in sonographic appearance. No gallbladder wall thickening, gallstones, pericholecystic fluid, or abnormal sonographic Jay's sign. Biliary ducts: No intrahepatic biliary ductal dilatation. Extrahepatic bile duct is 7.5 mm in caliber. Normal biliary caliber is 6-7 mm or less, or 10 mm or less post-cholecystectomy. Pancreas: Visualized portions of the pancreas appear normal. Kidneys: Right kidney is normal in size and echotexture. Right kidney measures 9.5 cm long; renal cortical thickness measures 1.1 cm . No hydronephrosis or nephrolithiasis. No solid renal masses. Miscellaneous: No free abdominal fluid. IMPRESSION: Diffusely increased hepatic echotexture likely representing hepatic steatosis versus other chronic hepatocellular disease. Findings may correlate with history of elevated LFTs. Reviewed by: Aaron Rivera MD on 10/11/2019 9:18 AM PDT Approved by: Aaron Rivera MD on 10/11/2019 9:18 AM PDT Station ID: [id number]
== END 2019-10-11 07:18 | disposition home or self-care (01) ==
LOC: DI 07:17
PROVIDERS: ATTEND Internal Medicine
DX: R79.89 Other specified abnormal findings of blood chemistry (principal)
CPT/HCPCS: 76705

== ENCOUNTER 2020-08-02 08:42 | Outpatient (CLI) | payer OTHER ==
[2020-08-02 08:59] LABS: BASOPHILS # (AUTO) 0.1 10^3/uL (0.0-0.1); BASOPHILS % (AUTO) 0.9 %; EOSINOPHILS # (AUTO) 0.1 10^3/uL (0.0-0.7); EOSINOPHILS % (AUTO) 1.9 %; HGB - HEMOGLOBIN 13.3 g/dL (12.0-16.0); LYMPHOCYTES # (AUTO) 2.9 10^3/uL (1.5-3.5); LYMPHOCYTES % (AUTO) 50.2 %; MEAN CORPUSCULAR HEMOGLOBIN 33.1 pg (27.0-31.0); MEAN CORPUSCULAR HGB CONC 32.4 g/dL (32.0-36.0); MEAN PLATELET VOLUME 9.1 fL (7.9-10.8); MONOCYTES # (AUTO) 0.4 10^3/uL (0.0-1.0); MONOCYTES % (AUTO) 7.6 %; NEUTROPHILS # (AUTO) 2.3 10^3/uL (1.5-6.6); NEUTROPHILS % (AUTO) 39.4 %; PLT - PLATELET COUNT 258 10^3/uL (130-450); RED BLOOD COUNT 4.02 10^6/uL (4.20-5.40); RED CELL DISTRIBUTION WIDTH 12.6 % (12.0-15.0); WHITE BLOOD COUNT 5.8 x10^3/uL (4.8-10.8)
[2020-08-02 09:25] LABS: ALBUMIN 4.6 g/dL (3.2-5.5); ALBUMIN/GLOBULIN RATIO 1.5 (1.0-2.2); ALKALINE PHOSPHATASE 58 IU/L (42-121); ALT ALANINE AMINOTRANSFERASE 18 IU/L (10-60); AST ASPARTATE AMINOTRANSFERASE 19 IU/L (10-42); BILIRUBIN,TOTAL 0.8 mg/dL (0.2-1.0); BUN - BLOOD UREA NITROGEN 10 mg/dL (6-20); CALCIUM 9.8 mg/dL (8.5-10.3); CARBON DIOXIDE - CO2 27 mmol/L (21-32); CHLORIDE 103 mmol/L (101-111); CHOL/HDL RATIO 2.8 (<4.4); CHOLESTEROL 171 mg/dL; CK- CREATINE KINASE 53 IU/L (22-269); CREATININE 0.7 mg/dL (0.4-1.0); GFR - MDRD 85 (>89); GLUCOSE 109 mg/dL (70-100); HDL CHOLESTEROL 61 mg/dL; LDL CHOLESTEROL,CALCULATED 92 mg/dL; LDL/HDL RATIO 1.5 (<4.4); POTASSIUM 3.5 mmol/L (3.5-5.0); SODIUM 140 mmol/L (135-145); TOTAL PROTEIN 7.7 g/dL (6.7-8.2); TRIGLYCERIDES 88 mg/dL; VLDL CHOLESTEROL 18 mg/dL
[2020-08-02 18:33] LABS: ESTIMATED AVERAGE GLUCOSE 94 mg/dL (70-100); HEMOGLOBIN A1c% 4.9 % (4.27-6.07)
[2020-08-03 12:08] LABS: HEPATITIS C ANTIBODY NON-REACTIVE (NON-REACTIVE)
== END 2020-08-02 08:43 | disposition home or self-care (01) ==
LOC: LAB 08:42
PROVIDERS: ATTEND Internal Medicine
DX: I63.9 Cerebral infarction, unspecified (principal); R74.8 Abnormal levels of other serum enzymes; E78.5 Hyperlipidemia, unspecified; Z79.899 Other long term (current) drug therapy; Z11.59 Encounter for screening for other viral diseases; Z13.6 Encounter for screening for cardiovascular disorders; L40.9 Psoriasis, unspecified; E55.9 Vitamin D deficiency, unspecified; R73.01 Impaired fasting glucose
CPT/HCPCS: 36415; 80053; 80061; 82306; 82550; 83036; 83721; 84443; 85025; 86803

== ENCOUNTER 2020-10-18 06:38 | Emergency (ER) | payer OTHER ==
--- NOTE | 2020-10-18 07:02 | ED Physician Documentation ---
PD HPI ABD PAIN - Stated complaint Stated Complaint: FEMALE - Chief complaint Chief Complaint: Abd Pain - History obtained from History obtained from: Patient - Additional information Additional information: Painless hematuria for about 4 months. Later then monalisa wine so not heavy. It is associated with mild left flank pain. No fevers or chills. She saw her physician who did a urinalysis confirming hematuria and she has a pending referral to urology in late November, but was urged to come to the emergency department this morning by her friend. She is a history of stroke and is on clopidogrel. No other health issues. She admits to significant anxiety this morning. Review of Systems Ten Systems: 10 systems reviewed and negative Constitutional: denies: Fever, Chills Respiratory: denies: Dyspnea, Cough GI: denies: Abdominal Pain, Nausea, Vomiting, Diarrhea PD PAST MEDICAL HISTORY - Past Medical History Cardiovascular: Hypertension Respiratory: None Endocrine/Autoimmune: None : Frequency HEENT: None Psych: Post traumatic stress disorder Musculoskeletal: Rheumatoid arthritis Derm: Eczema - Past Surgical History Past Surgical History: Yes General: Appendectomy - Present Medications Home Medications: Ambulatory Orders Medication Instructions Recorded Confirmed Multivitamin [Theragran] 1 tab PO DAILY 03/19/17 10/18/20 buPROPion [Wellbutrin Xl] 150 mg PO DAILY #30 tablet 03/19/17 10/18/20 Cetirizine [ZyrTEC] 10 mg pe PO DAILY 01/28/18 10/18/20 Oxybutynin [Ditropan] 10 mg PO BID 10/18/20 10/18/20 - Allergies Allergies/Adverse Reactions: Allergies Allergy/AdvReac Type Severity Reaction Status Date / Time Sulfa (Sulfonamide Allergy Rash Verified 10/18/20 06:54 Antibiotics) - Social History Does the pt smoke?: No Smoking Status: Former smoker Does the pt drink ETOH?: No Does the pt have substance abuse?: Yes - Immunizations Immunizations are current?: Yes - POLST Patient has POLST: No PD ED PE NORMAL - Vitals Vital signs reviewed: Yes - General General: Alert and oriented X 3, No acute distress - HEENT HEENT: PERRL, EOMI - Neck Neck: Supple, no meningeal sign, No bony TTP - Cardiac Cardiac: RRR, No murmur - Respiratory Respiratory: No respiratory distress, Clear bilaterally - Abdomen Abdomen: Other (Mild suprapubic tenderness but no flank tenderness, no masses.) - Back Back: No CVA TTP, No spinal TTP - Derm Derm: Normal color, Warm and dry - Extremities Extremities: No edema, No calf tenderness / cord - Neuro Neuro: Alert and oriented X 3, Normal speech Results - Vitals Vitals: Vital Signs - 24 hr 10/18/20 10/18/20 10/18/20 06:40 06:48 09:00 Temperature 36.8 C 37.1 C Heart Rate 134 H 94 90 Respiratory 18 16 18 Rate Blood Pressure 163/98 H 136/79 H 140/80 H O2 Saturation 98 99 98 Oxygen O2 Source Room air - Labs Labs: Laboratory Tests 10/18/20 10/18/20 10/18/20 07:14 07:14 07:40 WBC 5.5 RBC 4.00 L Hgb 13.5 Hct 40.3 MCV 100.8 H MCH 33.8 H MCHC 33.5 RDW 11.9 L Plt Count 236 MPV 9.8 Neut # (Auto) 2.3 Lymph # (Auto) 2.5 Irion # (Auto) 0.4 Eos # (Auto) 0.2 Baso # (Auto) 0.1 Absolute Nucleated RBC 0.00 Nucleated RBC % 0.0 Sodium 138 Potassium 3.1 L Chloride 102 Carbon Dioxide 26 Anion Gap 10.0 BUN 11 Creatinine 1.0 Estimated GFR (MDRD) 56 L Glucose 133 H Calcium 9.6 Urine Color LIGHT YELLOW Urine Clarity CLEAR Urine pH 5.5 Ur Specific [place] 1.010 Urine Protein NEGATIVE Urine Glucose (UA) NEGATIVE Urine Ketones NEGATIVE Urine Occult Blood SMALL H Urine Nitrite NEGATIVE Urine Bilirubin NEGATIVE Urine Urobilinogen 0.2 (NORMAL) Ur Leukocyte Esterase NEGATIVE Urine RBC 0-5 Urine WBC 0-3 Ur Squamous Epith Cells FEW Squamous Urine Bacteria Few Ur Microscopic Review INDICATED Urine Culture Comments NOT INDICATED PD MEDICAL DECISION MAKING - ED course ED course: 65-year-old woman presents with 4 months worth of gross hematuria. Minimal blood on urinalysis here. H&H is unremarkable. CT IVP done without mass lesion obvious. She has an appointment with urology and I think it is okay to wait, will need nonurgent cystoscopy but given lack of clear findings on CT IVP there does not seem to be a medical emergency. Departure - Departure Disposition: 01 Home, Self Care Clinical Impression: Hematuria Qualifiers: Hematuria type: gross Qualified Code(s): R31.0 - Gross hematuria Condition: Good Record reviewed to determine appropriate education?: Yes Instructions: ED Hematuria Comments: CT scan today without obvious cause of hematuria. There was some bladder wall thickening, but your urinalysis here only showed this to touch of blood. Your basic blood work was normal with the exception of a low potassium level which we gave you a potassium pill for. I think given the normal findings it is okay to wait to see the urologist as is currently scheduled. Return for new or worsening symptoms. IMPRESSION: 1. No renal stone or hydronephrosis.No gross enhancing renal lesion. No gross abnormalities are seen in visualized bilateral ureters. Evaluation of most distal bilateral ureters/UVJs is slightly limited due to presence of significant beam hardening artifact from right hip prosthesis. Numerous phleboliths are noted in bilateral lower pelvis near the distal ureters. Tiny nonobstructing distal ureteral stone cannot be entirely excluded. 2. Borderline bladder wall thickening, low-grade cystitis cannot be excluded. No discrete bladder wall mass. No calcified bladder stone. 3. No acute inflammatory process is seen in abdomen or pelvis. No bowel obstruction. No free fluid or free air. 4. Mild hepatic steatosis. Discharge Date/Time: 10/18/20 09:20
--- OUTSIDE RECORDS SUMMARY | 2020-10-18 07:30 | EXTERNAL MEDICAL SUMMARY RPT | Continuity of Care Document ---
:1955 Demographics Phone Unavailable Preferred Language Unknown Marital Status Unknown Druze Affiliation Unknown Race Unknown Ethnic Group Unknown Author Organization [facility] Address [address] [place] [address] Phone Allergies Encounters Medications Problems Results
[2020-10-18 07:33] LABS: CALCIUM 9.6 mg/dL (8.5-10.3); POTASSIUM 3.1 mmol/L (3.5-5.0)
[2020-10-18 07:34] LABS: BASOPHILS # (AUTO) 0.1 10^3/uL (0.0-0.1); BASOPHILS % (AUTO) 0.9 %; EOSINOPHILS # (AUTO) 0.2 10^3/uL (0.0-0.7); HCT - HEMATOCRIT 40.3 % (37.0-47.0); HGB - HEMOGLOBIN 13.5 g/dL (12.0-16.0); LYMPHOCYTES # (AUTO) 2.5 10^3/uL (1.5-3.5); LYMPHOCYTES % (AUTO) 45.5 %; MEAN CORPUSCULAR HEMOGLOBIN 33.8 pg (27.0-31.0); MEAN CORPUSCULAR HGB CONC 33.5 g/dL (32.0-36.0); MEAN CORPUSCULAR VOLUME 100.8 fL (81.0-99.0); MEAN PLATELET VOLUME 9.8 fL (7.9-10.8); MONOCYTES # (AUTO) 0.4 10^3/uL (0.0-1.0); MONOCYTES % (AUTO) 7.3 %; NEUTROPHILS # (AUTO) 2.3 10^3/uL (1.5-6.6); NEUTROPHILS % (AUTO) 42.1 %; PLT - PLATELET COUNT 236 10^3/uL (130-450); RED CELL DISTRIBUTION WIDTH 11.9 % (12.0-15.0); WHITE BLOOD COUNT 5.5 x10^3/uL (4.8-10.8)
[2020-10-18] MEDS ORDERED: IOVERSOL 320 100 ML VIAL IVP ONE ×2 (07:34→08:06)
[2020-10-18 07:54] LABS: BILIRUBIN,URINE NEGATIVE (NEGATIVE); GLUCOSE, URINE (UA) NEGATIVE (NEGATIVE); KETONES,URINE (UA) NEGATIVE (NEGATIVE); LEUKOCYTE ESTERASE, URINE NEGATIVE (NEGATIVE); NITRITE,URINE NEGATIVE (NEGATIVE); OCCULT BLOOD,URINE SMALL (NEGATIVE); PH,URINE 5.5 PH (5.0-7.5); PROTEIN,URINE NEGATIVE (NEGATIVE); UROBILINOGEN,URINE 0.2 (NORMAL) E.U./dL (NORMAL)
[2020-10-18 07:57] LABS: CLARITY,URINE CLEAR (CLEAR)
[2020-10-18 08:27] LABS: BACTERIA,URINE Few /HPF (None Seen); RBC,URINE 0-5 /HPF (0-5); SQUAMOUS EPITHELIAL CELL,UR FEW Squamous (<= Few); WBC,URINE 0-3 /HPF (0-5)
--- NOTE | 2020-10-18 08:38 | CT Report ---
PROCEDURE: IVP INDICATIONS: L flank pain, hematuria CONTRAST: IV CONTRAST: Optiray 320 ml: 140 PO CONTRAST: *NO PO CONTRAST TECHNIQUE: After the administration of intravenous contrast, 5 mm thick sections acquired from the diaphragms to the symphysis. 5 mm thick coronal and sagittal reformats were acquired. For radiation dose reducti on, the following was used: automated exposure control, adjustment of mA and/or kV according to he ent size. COMPARISON: Ultrasound of abdomen dated 10/11/2019. CT of abdomen and pelvis dated 01/17/2014 and 2012. FINDINGS: Image quality: Diagnostic. Significant beam hardening artifacts from right hip prosthesis is seen whi ch partially limits the evaluation of distal ureters.. Lung bases: Dependent atelectasis in posterior aspect of bilateral lung casillas are seen. Heart size i s normal. Urinary system: Both kidneys are normal in size and enhancement. Contrast-filled renal calyces are normal in morphology. Contrast filled portions of both ureters are normal in caliber. Numerous phleb oliths are seen in bilateral lower pelvis not significantly changed from prior study. No definite dis darius ureteral stone is seen. There is borderline bladder wall thickening measures 2 to 3 mm in thickne ss. No discrete bladder wall mass. No calcified bladder stone. Solid organs: Liver and spleen are normal in size. No discrete hepatic or splenic lesion is seen. Mi ld hepatic steatosis is seen. Gallbladder is within normal limits Biliary system is non dilated. Pa ncreas enhances normally. No adrenal nodules. Peritoneum and bowel: Bowel loops demonstrate normal wall thickness and caliber. No free fluid or a ir. There is a small hiatal hernia. Nodes and vessels: No retroperitoneal or mesenteric adenopathy by size criteria. Aorta and inferior vena cava are normal in size. Abdominal wall: No ventral hernias. Pelvis: No pathologic free pelvic fluid. No inguinal hernias or adenopathy. Bones: No suspicious bony lesions. No vertebral body compression fractures. Prior right total hip arthroplasty. Mild degenerative endplate changes are seen in lower thoracic spine and lumbar spine. IMPRESSION: 1. No renal stone or hydronephrosis.No gross enhancing renal lesion. No gross abnormalities are seen in visualized bilateral ureters. Evaluation of most distal bilateral ureters/UVJs is slightly limited due to presence of significant beam hardening artifact from right hip prosthesis. Numerous phlebolit hs are noted in bilateral lower pelvis near the distal ureters. Tiny nonobstructing distal ureteral s tone cannot be entirely excluded. 2. Borderline bladder wall thickening, low-grade cystitis cannot be excluded. No discrete bladder wal l mass. No calcified bladder stone. 3. No acute inflammatory process is seen in abdomen or pelvis. No bowel obstruction. No free fluid or free air. 4. Mild hepatic steatosis. Reviewed by: J Luis Barnes MD on 10/18/2020 8:37 AM PDT Approved by: J Luis Barnes MD on 10/18/2020 8:37 AM PDT Station ID: [id number]
[2020-10-18] MEDS ORDERED: POTASSIUM CHLORIDE 20 MEQ TABLET PO STA (08:49)
[2020-10-18 09:39] VITALS: BP 140/80
== END 2020-10-18 09:20 | disposition home or self-care (01) ==
LOC: ED 06:38
DX: R31.0 Gross hematuria (principal); R10.9 Unspecified abdominal pain; E87.6 Hypokalemia; F41.9 Anxiety disorder, unspecified; I10 Essential (primary) hypertension; Z86.73 Personal history of transient ischemic attack (TIA), and cerebral infarction without residual deficits; Z79.02 Long term (current) use of antithrombotics/antiplatelets; Z87.891 Personal history of nicotine dependence
CPT/HCPCS: 36415; 74178; 80048; 81001; 85025; 99283; 99284; A9270; Q9967; 81003; 87086

== ENCOUNTER 2021-08-08 08:00 | Outpatient (CLI) | payer OTHER ==
[2021-08-08 16:05] LABS: BASOPHILS # (AUTO) 0.1 10^3/uL (0.0-0.1); BASOPHILS % (AUTO) 0.8 %; EOSINOPHILS # (AUTO) 0.2 10^3/uL (0.0-0.7); EOSINOPHILS % (AUTO) 3.1 %; HCT - HEMATOCRIT 41.2 % (37.0-47.0); HGB - HEMOGLOBIN 13.6 g/dL (12.0-16.0); LYMPHOCYTES # (AUTO) 2.3 10^3/uL (1.5-3.5); LYMPHOCYTES % (AUTO) 36.7 %; MEAN CORPUSCULAR HEMOGLOBIN 32.6 pg (27.0-31.0); MEAN CORPUSCULAR VOLUME 98.8 fL (81.0-99.0); MEAN PLATELET VOLUME 10.2 fL (7.9-10.8); MONOCYTES # (AUTO) 0.4 10^3/uL (0.0-1.0); MONOCYTES % (AUTO) 5.8 %; NEUTROPHILS # (AUTO) 3.4 10^3/uL (1.5-6.6); NEUTROPHILS % (AUTO) 53.4 %; PLT - PLATELET COUNT 250 10^3/uL (130-450); RED BLOOD COUNT 4.17 10^6/uL (4.20-5.40); RED CELL DISTRIBUTION WIDTH 13.2 % (12.0-15.0); WHITE BLOOD COUNT 6.4 x10^3/uL (4.8-10.8)
[2021-08-08 16:14] LABS: ALBUMIN 4.3 g/dL (3.2-5.5); ALBUMIN/GLOBULIN RATIO 1.2 (1.0-2.2); ALKALINE PHOSPHATASE 62 IU/L (42-121); ALT ALANINE AMINOTRANSFERASE 17 IU/L (10-60); AST ASPARTATE AMINOTRANSFERASE 23 IU/L (10-42); BILIRUBIN,TOTAL 1.1 mg/dL (0.2-1.0); BUN - BLOOD UREA NITROGEN 10 mg/dL (6-20); CALCIUM 9.6 mg/dL (8.5-10.3); CARBON DIOXIDE - CO2 28 mmol/L (21-32); CHLORIDE 99 mmol/L (101-111); CHOL/HDL RATIO 3.4 (<4.4); CHOLESTEROL 236 mg/dL; CREATININE 0.8 mg/dL (0.4-1.0); GFR - MDRD 72 (>89); GLUCOSE 100 mg/dL (70-100); HDL CHOLESTEROL 70 mg/dL; LDL CHOLESTEROL,CALCULATED 151 mg/dL; LDL/HDL RATIO 2.2 (<4.4); SODIUM 136 mmol/L (135-145); TOTAL PROTEIN 7.9 g/dL (6.7-8.2); TRIGLYCERIDES 76 mg/dL; VLDL CHOLESTEROL 15 mg/dL
[2021-08-08 20:21] LABS: ESTIMATED AVERAGE GLUCOSE 103 mg/dL (70-100); HEMOGLOBIN A1c% 5.2 % (4.27-6.07)
== END 2021-08-08 08:01 | disposition home or self-care (01) ==
LOC: LAB.R 08:00
PROVIDERS: ATTEND Internal Medicine
DX: Z00.00 Encounter for general adult medical examination without abnormal findings (principal); I63.9 Cerebral infarction, unspecified; E55.9 Vitamin D deficiency, unspecified; R74.8 Abnormal levels of other serum enzymes; Z86.010 Personal history of colon polyps; I10 Essential (primary) hypertension; R73.01 Impaired fasting glucose; L40.9 Psoriasis, unspecified; Z13.6 Encounter for screening for cardiovascular disorders; Z79.899 Other long term (current) drug therapy
CPT/HCPCS: 80053; 80061; 82306; 83036; 83721; 84443; 85025

== ENCOUNTER 2022-10-14 11:11 | Outpatient (CLI) | payer OTHER ==
--- NOTE | 2022-10-15 09:20 | Mammography Report ---
BILATERAL DIGITAL SCREENING MAMMOGRAM 3D/2D: 10/14/2022 CLINICAL: Routine screening. Comparison is made to exams dated: 05/12/2019 mammogram, 01/21/2017 mammogram, 06/20/2015 mammogram, 05/12 mammogram, 05/24/2013 mammogram, and 05/19/2012 mammogram - [facility]. There are scattered areas of fibroglandular density in both breasts (category b / 25%-50% glandular t issue). No significant masses, calcifications, or other findings are seen in either breast. There has been no significant interval change. IMPRESSION: NEGATIVE There is no mammographic evidence of malignancy. A 1 year screening mammogram is recommended. Based on the Tyrer Cuzick model (a risk assessment model) the patients lifetime risk is 8.2% and her 10 year risk is 4.0%. According to the ACR, ACS, and NCCN guidelines, an annual breast MRI exam zaid g with mammogram is recommended if the patients lifetime risk is 20% or greater. This exam was interpreted at Station ID: [id number]. NOTE: For mammograms, a report in lay terms will be sent to the patient. Approximately 15% of breast malignancies will not be visualized mammographically. In the management of a palpable breast mass, a negative mammogram must not discourage biopsy of a clinically suspicious lesion. Electronically Signed By: Aaron lima/zain:10/14/2022 13:11:52 letter sent: No_Letter ACR BI-RADS Category 1: Negative 3341F PARENCHYMAL PATTERN: (A) - The breast(s) demonstrate(s) scattered fibroglandular densities. BI-RADS CATEGORY: (1) - 1 Mammogram [id number] 1 year screening LATERALITY: (B)
== END 2022-10-14 11:12 | disposition home or self-care (01) ==
LOC: DI 11:11
PROVIDERS: ATTEND Internal Medicine
DX: Z12.31 Encounter for screening mammogram for malignant neoplasm of breast (principal)

== ENCOUNTER 2023-02-17 15:31 | Outpatient (CLI) | payer OTHER | END 2023-02-17 23:59 | disposition critical access hospital (66) | LOC: EMS 15:31 | DX: R11.2 Nausea with vomiting, unspecified (principal) | CPT/HCPCS: A0425; A0427 ==

== ENCOUNTER 2023-02-17 15:48 | Emergency (ER) | payer OTHER ==
[2023-02-17] MEDS ORDERED: SODIUM CHLORIDE 0.9% 1,000 ML IV STA ×2 (15:55)
--- NOTE | 2023-02-17 15:58 | ED Physician Documentation ---
History of Present Illness - Stated complaint Stated Complaint: N/V - History obtained from History obtained from: Patient - History of Present Illness Timing: Today Pain level max: 0 Pain level now: 0 - Additonal information Additional information: 67-year-old female with a remote history of right-sided CVA causing right-sided paralysis. She was at occupational therapy today, went home ate a muffin and a popsicle for lunch, then started having vomiting. Vomited multiple times. Has not had any diarrhea or constipation yet. No dysuria. She felt mildly subjectively feverish yesterday, no fevers today. No cough or congestion. No rhinorrhea. No abdominal pain. She received 4 mg of Zofran with EMS and her nausea has resolved. No recent travel. No recent antibiotics. Review of Systems Constitutional: denies: Fever, Chills Nose: denies: Rhinorrhea / runny nose, Congestion GI: reports: Nausea, Vomiting. denies: Abdominal Pain, Constipation, Diarrhea, Hematemesis, Bloody / black stool : denies: Dysuria, Frequency, Hesitancy Skin: denies: Rash Musculoskeletal: denies: Neck pain, Back pain Neurologic: denies: Headache PD PAST MEDICAL HISTORY - Past Medical History Cardiovascular: Hypertension Respiratory: None Endocrine/Autoimmune: None : Frequency HEENT: None Psych: Post traumatic stress disorder Musculoskeletal: Rheumatoid arthritis Derm: Eczema - Past Surgical History Past Surgical History: Yes General: Appendectomy - Present Medications Home Medications: Ambulatory Orders Medication Instructions Recorded Confirmed Multivitamin [Theragran] 1 tab PO DAILY 03/19/17 10/18/20 buPROPion [Wellbutrin Xl] 150 mg PO DAILY #30 tablet 03/19/17 10/18/20 Cetirizine [ZyrTEC] 10 mg pe PO DAILY 01/28/18 10/18/20 Oxybutynin [Ditropan] 10 mg PO BID 10/18/20 10/18/20 Ondansetron Odt [Zofran] 4 mg TL Q6H PRN #10 tablet 02/17/23 - Allergies Allergies/Adverse Reactions: Allergies Allergy/AdvReac Type Severity Reaction Status Date / Time Sulfa (Sulfonamide Allergy Rash Verified 10/18/20 06:54 Antibiotics) - Social History Does the pt smoke?: No Smoking Status: Former smoker Does the pt drink ETOH?: No Does the pt have substance abuse?: Yes - Immunizations Immunizations are current?: Yes - POLST Patient has POLST: No PD ED PE NORMAL - Vitals Vital signs reviewed: Yes - General General: Alert and oriented X 3, No acute distress - HEENT HEENT: PERRL, Moist mucous membranes - Neck Neck: Supple, no meningeal sign - Cardiac Cardiac: RRR, Strong equal pulses - Respiratory Respiratory: No respiratory distress, Clear bilaterally - Abdomen Abdomen: Soft, Non tender, Non distended - Back Back: No CVA TTP, No spinal TTP - Derm Derm: Warm and dry - Extremities Extremities: No edema, No calf tenderness / cord - Neuro Neuro: Alert and oriented X 3 - Psych Psych: Normal mood, Normal affect Results - Vitals Vitals: Oxygen O2 Source Room air - Labs Labs: Laboratory Tests 02/17/23 02/17/23 02/17/23 16:07 16:07 16:52 WBC 11.1 H RBC 4.15 L Hgb 13.6 Hct 40.8 MCV 98.3 MCH 32.8 H MCHC 33.3 RDW 13.0 Plt Count 296 MPV 9.7 Neut # (Auto) 9.5 H Lymph # (Auto) 1.0 [place] # (Auto) 0.5 Eos # (Auto) 0.1 Baso # (Auto) 0.0 Absolute Nucleated RBC 0.00 Nucleated RBC % 0.0 Sodium 140 Potassium 3.8 Chloride 103 Carbon Dioxide 27 Anion Gap 10.0 BUN 9 Creatinine 0.9 Estimated GFR (MDRD) 63 L Glucose 147 H Calcium 10.2 Total Bilirubin 0.6 AST 18 ALT 14 Alkaline Phosphatase 72 Total Protein 7.7 Albumin 4.4 Globulin 3.3 Albumin/Globulin Ratio 1.3 Lipase 33 Urine Color YELLOW Urine Clarity CLEAR Urine pH 7.0 Ur Specific [place] 1.010 Urine Protein NEGATIVE Urine Glucose (UA) NEGATIVE Urine Ketones 40 H Urine Occult Blood TRACE-LYSE Urine Nitrite NEGATIVE Urine Bilirubin NEGATIVE Urine Urobilinogen 0.2 (NORMAL) Ur Leukocyte Esterase NEGATIVE Ur Microscopic Review NOT INDICATED Urine Culture Comments NOT INDICATED PD Medical Decision Making - ED course Complexity details: reviewed results, re-evaluated patient, considered different ial, d/w patient ED course: Patient with possible viral gastroenteritis versus food poisoning. Abdomen is soft, nontender nondistended. Patient is well appearing coming on toxic. She was given a dose of Zofran and IV fluids. Tolerating PO without difficulty here. Afebrile. No significant lab abnormalities. We will continue supportive care and have her follow up with her doctor should her symptoms not improve. Patient counseled regarding signs and symptoms for which I believe an urgent re- evaluation would be necessary. Patient with good understanding of and agreement to plan and is comfortable going home at this time. This document was made in part using voice recognition software. While efforts are made to proofread this document, sound alike and grammatical errors may occur. Departure - Departure Disposition: 01 Home, Self Care Clinical Impression: Vomiting Qualifiers: Vomiting type: unspecified Nausea presence: with nausea Qualified Code(s): R11.2 - Nausea with vomiting, unspecified Condition: Good Instructions: ED Nausea Vomiting Follow-Up: Majo Rea MD [Primary Care Provider] - Within 1 week Prescriptions: Ondansetron Odt [Zofran] 4 mg TL Q6H PRN #10 tablet PRN Reason: Nausea / Vomiting Comments: Your prescriptions were sent to [facility] in [place]. Please follow-up with your doctor for further care. Please return if you worsen. Drink plenty of fluids. As we discussed, you may develop diarrhea over the next 12 to 24 hours as well. Forms: PCP List Discharge Date/Time: 02/17/23 17:20
[2023-02-17 16:23] LABS: BASOPHILS % (AUTO) 0.4 %; EOSINOPHILS # (AUTO) 0.1 10^3/uL (0.0-0.7); EOSINOPHILS % (AUTO) 0.5 %; HCT - HEMATOCRIT 40.8 % (37.0-47.0); HGB - HEMOGLOBIN 13.6 g/dL (12.0-16.0); MEAN CORPUSCULAR HEMOGLOBIN 32.8 pg (27.0-31.0); MEAN CORPUSCULAR HGB CONC 33.3 g/dL (32.0-36.0); MEAN CORPUSCULAR VOLUME 98.3 fL (81.0-99.0); MEAN PLATELET VOLUME 9.7 fL (7.9-10.8); MONOCYTES # (AUTO) 0.5 10^3/uL (0.0-1.0); MONOCYTES % (AUTO) 4.6 %; NEUTROPHILS # (AUTO) 9.5 10^3/uL (1.5-6.6); NEUTROPHILS % (AUTO) 85.3 %; PLT - PLATELET COUNT 296 10^3/uL (130-450); RED BLOOD COUNT 4.15 10^6/uL (4.20-5.40); WHITE BLOOD COUNT 11.1 x10^3/uL (4.8-10.8)
[2023-02-17 16:54] LABS: ALBUMIN 4.4 g/dL (3.2-5.5); ALBUMIN/GLOBULIN RATIO 1.3 (1.0-2.2); BILIRUBIN,TOTAL 0.6 mg/dL (0.2-1.0); CALCIUM 10.2 mg/dL (8.5-10.3); CREATININE 0.9 mg/dL (0.6-1.3); POTASSIUM 3.8 mmol/L (3.5-4.5); TOTAL PROTEIN 7.7 g/dL (6.4-8.9)
[2023-02-17 17:00] LABS: BILIRUBIN,URINE NEGATIVE (NEGATIVE); CLARITY,URINE CLEAR (CLEAR); GLUCOSE, URINE (UA) NEGATIVE (NEGATIVE); KETONES,URINE (UA) 40 mg/dL (NEGATIVE); LEUKOCYTE ESTERASE, URINE NEGATIVE (NEGATIVE); NITRITE,URINE NEGATIVE (NEGATIVE); OCCULT BLOOD,URINE TRACE-LYSE (NEGATIVE); PROTEIN,URINE NEGATIVE (NEGATIVE); UROBILINOGEN,URINE 0.2 (NORMAL) E.U./dL (NORMAL)
[2023-02-17 17:01] VITALS: BP 113/65; O2SAT 99
== END 2023-02-17 17:20 | disposition home or self-care (01) ==
LOC: EDUNIT# → ED 15:48
DX: R11.2 Nausea with vomiting, unspecified (principal); Z87.891 Personal history of nicotine dependence
CPT/HCPCS: 36415; 80053; 81001; 81003; 83690; 85025; 87086; 99283

== ENCOUNTER 2023-12-13 08:06 | Outpatient (CLI) | payer OTHER ==
--- NOTE | 2023-12-13 09:40 | DEXA Report ---
PROCEDURE: Dexa Spine and/or Hip INDICATIONS: POST MENOPAUSAL TECHNIQUE: Dual energy x-ray absorptiometry (DXA) was performed on a [employer] System. Regions measur ed are the AP Spine, femoral neck, and if needed forearm. COMPARISON: None FINDINGS: Lumbar Spine: Bone Mineral Density: 0.986 g/cm/cm,T score: -1.6. Left Femoral Neck: Bone Mineral Density: 0.683 g/cm/cm, T score: -2.6. Left Hip: Bone Mineral Density: 0.697 g/cm/cm,T score: -2.5. FRAX risk factors: None given. Not reported due to prior fracture and osteoporosis. (T score greater or equal to -1.0: NORMAL) (T score from -1.1 to -2.4: OSTEOPENIA) (T score less than or equal to -2.5 to: OSTEOPOROSIS) Impression: By WHO criteria, this patient has osteoporosis. Patients with diagnosis of osteoporosis or osteopenia should have regular bone mineral density assess ment. For those eligible for Medicare, routine testing is allowed once every 2 years. Testing frequ ency can be increased for patients who have rapidly progressing disease or for those who are receivin g medical therapy to restore bone mass. Reviewed by: Peterson Barrett MD on 12/13/2023 9:39 AM PDT Approved by: Peterson Barrett MD on 12/13/2023 9:39 AM PDT Station ID: [id number]
== END 2023-12-13 08:07 | disposition home or self-care (01) ==
LOC: DI 08:06
PROVIDERS: ATTEND Internal Medicine
DX: M81.0 Age-related osteoporosis without current pathological fracture (principal); Z78.0 Asymptomatic menopausal state